=== PATIENT | male | born 1990 | race Caucasian/White ===

== ENCOUNTER → 2018-09-04 | Outpatient (CLI) | payer BC ==
--- NOTE | 2018-09-08 10:22 | CT ---
EXAMINATION TYPE: CT Enterography DATE OF EXAM: 09/04/2018 COMPARISON: None HISTORY: crohns, colitis sx hx bowel resection CT DLP: 777.60 mGycm, Automated Exposure Control for Dose Reduction was Utilized. CONTRAST: CT scan of the abdomen and pelvis is performed with oral and with IV Contrast, patient injected with 100 mL of Isovue 370. FINDINGS: LUNG BASES: No significant abnormality is appreciated. LIVER/GB: No significant abnormality is appreciated. PANCREAS: No significant abnormality is seen. SPLEEN: No significant abnormality is seen. ADRENALS: No significant abnormality is seen. KIDNEYS: Bilateral simple appearing cyst with no evidence of renal calculi or hydronephrosis.. BOWEL: There is postsurgical change at the level of the distal ileum. There are number of fluid-fille d small bowel loops. There is very mild thickened wall to the transverse colon with very mild indurat ion of the fat. Mild thickening the wall the sigmoid colon. There also appears be mild thickening the wall the distal ileum at the level of the surgical anastomo sis. LYMPH NODES: No greater than 1cm abdominal or pelvic lymph nodes are appreciated. OSSEOUS STRUCTURES: No significant abnormality is seen. OTHER: Aorta of normal caliber. No free fluid or free air. Osseous structures intact. Calcifications in the pelvis appear to be compatible with vascular phleboliths. IMPRESSION: 1. There is marked thickening of the wall of the transverse colon circumferentially best noted on axi al images 51 through 54 and extending a length of 6 cm. Less marked wall thickening is seen involving the rectosigmoid junction. There also is very mild wall thickening at the level of the distal ileum at the anastomosis of the pr evious surgery measuring a length of 2.5 cm. A number of fluid-filled small bowel loops likely related to an ileus or related to enteritis rather than partial obstruction but should be correlated clinically. Findings could be on the basis of inflammatory bowel disease. Other enteritis not excluded. If there is concern for mucosal lesion correlate with direct visualization as clinically warranted. 2. Simple appearing bilateral renal cysts.
== END ==
LOC: RADCTMAIN 15:09
PROVIDERS: ATTEND Colon & Rectal Surgery
DX: N28.1 Cyst of kidney, acquired (principal); R93.3 Abnormal findings on diagnostic imaging of other parts of digestive tract
CPT/HCPCS: 74177; Q9967